=== PATIENT | male | born 1975 | race Caucasian/White ===

== ENCOUNTER 2020-12-20 15:22 | Outpatient (REF) | payer OTHER, SELFPAY | END 2020-12-20 15:23 | disposition home or self-care (01) | LOC: HO.LAB 15:22 | PROVIDERS: Visit Provider Internal Medicine | DX: Z20.822 Contact with and (suspected) exposure to COVID-19 (principal) | CPT/HCPCS: 36415; C9803; U0003 ==

== ENCOUNTER 2022-08-16 05:46 | Emergency (ER) | payer SELFPAY ==
[2022-08-16 06:23] VITALS: BP 129/77; PULSE 98; RESP 20; TEMP 36.3; O2SAT 97; BMI 25.1
--- NOTE | 2022-08-16 06:58 | ED.ABDPAIN ---
HPI - Abdominal Pain General Chief Complaint: General Medical Stated Complaint: food poisoning? Time Seen by Provider: 08/16/22 06:52 Source: patient Mode of arrival: ambulatory Limitations: no limitations Related Data Home Medications Medication Instructions Recorded Confirmed No Known Home Meds 03/27/22 03/27/22 Allergies Allergy/AdvReac Type Severity Reaction Status Date / Time No Known Allergies Allergy Verified 03/27/22 15:04 PMFSH Past Medical History Medical History Family history of diabetes mellitus KAMILA (generalized anxiety disorder) Mild intermittent asthma Mild recurrent major depression Moderate persistent asthma Varicocele Surgical History History of appendectomy History of umbilical hernia repair History of varicocele Family History Family History Mother Diabetes Father Stroke Social History Social History Housing: Apartment Alcohol intake: former Patient Tobacco Use Status: Current everyday Tobacco user Tobacco use type: Cigarette Cigarette Packs Per Day: 2 Cigarettes Per Day: 40 e-Cigarette/Vaping Use: Never Used Second Hand Smoke Exposure: No service: No Current occupational status: employed Current occupational exposures/hazards: No Cognitive needs: No Hearing needs: No Vision needs: Yes Physical Exam ED Vital Signs: Vital Signs - 24 hr 08/16/22 06:23 Temperature 97.4 F Pulse Rate 98 Respiratory Rate 20 Blood Pressure 129/77 Pulse Oximetry 97 Oxygen Delivery Method Room Air BMI result Body Mass Index 25.1 Discharge Plan Discharge Prescriptions: No Action No Known Home Meds
== END 2022-08-16 07:20 | disposition left against medical advice (07) ==
PROVIDERS: Emergency Provider Emergency Medicine
DX: R11.2 Nausea with vomiting, unspecified (principal); R10.9 Unspecified abdominal pain
CPT/HCPCS: 99281

== ENCOUNTER 2022-08-19 08:29 | Emergency (ER) | payer SELFPAY ==
--- NOTE | ~2022-08-19 | CT_ITS ---
EXAMINATION: CT ABDOMEN AND PELVIS WITH CONTRAST CLINICAL INFORMATION: Nausea, vomiting and diffuse abdominal pain COMPARISON: Right upper quadrant ultrasound performed the same date TECHNIQUE: Multidetector volumetric images were obtained from the superior aspect of the liver through the pubic symphysis following administration 85 mL of Omnipaque 350 intravenous contrast. Sagittal and coronal reformatted images were obtained on the technologist's workstation. Oral contrast: No This CT examination was performed using dose optimization techniques as appropriate, variously including the following: *Automated exposure control *Adjustment of mA and/or kV according to patient size (this includes techniques or standardized protocols for targeted exams where dose is matched to indication/reason for exam; i.e. extremities or head) *Use of iterative reconstruction technique DLP: 444 mGy-cm FINDINGS: LUNG BASES: Minimal subsegmental atelectasis of the dependent left lung base. LIVER, GALLBLADDER, AND BILIARY TREE: The liver is normal in size, shape, and attenuation. No focal hepatic lesion or biliary ductal dilatation is present. Large 2.2 cm peripherally calcified gallstone in the body of the gallbladder. Tiny gallstone versus focal mural calcification in the gallbladder fundus. Prominent enhancement of the gallbladder wall. No pericholecystic fluid or inflammatory change. PANCREAS: Unremarkable. SPLEEN: Unremarkable. ADRENAL GLANDS: Unremarkable. KIDNEYS AND URETERS: The kidneys are normal in size, shape, and attenuation. No hydronephrosis, hydroureter, or calculi seen. No perinephric stranding. BLADDER: Unremarkable. GASTROINTESTINAL TRACT: The small and large bowel are unremarkable. The appendix is not visualized. No inflammatory change at the cecal base. No ascites or free air. ABDOMINAL WALL: No significant hernia is appreciated. LYMPH NODES: No lymphadenopathy. Slightly giles appearance of the mesenteric root, nonspecific finding. VASCULAR: Normal caliber abdominal aorta. Mild atherosclerotic vascular calcifications PELVIC VISCERA: Unremarkable. OSSEOUS STRUCTURES: No acute fracture or suspicious appearing osseous lesion. Small 1.3 cm sclerotic bone lesion with trabeculated margins in the posterior medial left iliac bone likely a large bone island. CT/CT abdomen pelvis w IV con IMPRESSION: 1. Cholelithiasis and prominent enhancement of the gallbladder wall, nonspecific. Correlate clinically with signs or symptoms of acute or chronic cholecystitis. No pericholecystic fluid or inflammatory change. 2. No acute intra-abdominal process identified.
--- NOTE | ~2022-08-19 | US_ITS ---
EXAMINATION: US ABDOMEN LIMITED CLINICAL INFORMATION: Nausea and vomiting. Abdominal pain.. COMPARISON: None TECHNIQUE: Real-time imaging of the right upper quadrant abdominal viscera. FINDINGS: PANCREAS: Normal. LIVER: Normal. The liver is normal in size. The liver contour is normal. Parenchymal echogenicity is normal. No focal hepatic lesion. There is no intrahepatic biliary duct dilatation seen. GALLBLADDER: There is a large gallstone in the gallbladder. Gallbladder wall is slightly thickened and there is ring down artifact suggestive of adenomyomatosis of the gallbladder wall. There is no pericholecystic fluid. COMMON BILE DUCT: Normal in caliber measuring 0.3 cm in diameter. RIGHT KIDNEY: There is mild right proximal ureteral dilatation. No hydronephrosis. No renal calculi or focal parenchymal lesions. The kidney measures 11.5 cm in maximum dimension. FREE FLUID: None. Bilateral ureteral jets are seen in the bladder. US/US abdomen limited IMPRESSION: Large gallstone in the gallbladder. Probable adenomyomatosis of the gallbladder wall. Mild right proximal ureteral dilatation. No hydronephrosis and bilateral ureteral jets seen in the bladder.
[2022-08-19] MEDS: Ondansetron ODT 4 MG TAB.RAPDIS TRANSLINGU (09:14)
[2022-08-19 09:38] VITALS: BP 144/90; PULSE 78; RESP 16; TEMP 36.6; O2SAT 100; BMI 23.1
[2022-08-19 13:36] LABS: MANUAL DIFF FLAG NO
[2022-08-19 13:41] VITALS: BP 128/81; PULSE 71; RESP 18; TEMP 37.2; O2SAT 98
[2022-08-19 13:42] LABS: Basophils Absolute Auto 0.1 X10*3/uL (0.0-0.2); Basophils Percent Auto 0.5 % (0-2); Eosinophils Percent Auto 0.3 % (0-4); Hematocrit 43.6 % (42.0-52.0); Hemoglobin 14.7 g/dl (14.0-18.0); Imm Gran Abs Auto 0.04 X10*3/uL (0.00-0.03); Imm Gran Pct Auto 0.4 % (0.0-0.4); Lymphocytes Absolute Auto 1.7 X10*3/uL (1.2-4.9); Lymphocytes Percent Auto 18.6 % (20-40); Mean Corpuscular HGB Conc 33.7 g/dl (31.0-36.0); Mean Corpuscular Hemoglobin 31.5 pg (27.0-33.0); Mean Corpuscular Volume 93.6 fL (80.0-98.0); Mean Platelet Volume 10.1 fL (9.4-12.4); Monocytes Absolute Auto 0.7 X10*3/uL (0.1-1.2); Monocytes Percent Auto 7.9 % (2-11); Neutrophils Absolute Auto 6.6 x10*3/uL (2.0-8.3); Neutrophils Percent Auto 72.3 % (45-73); Platelet Count 257 X10*3/uL (160-400); Red Blood Count 4.66 X10*6/uL (4.60-5.80); Red Cell Distribution Width 13.4 % (11.0-16.0); White Blood Count 9.1 X10*3/uL (4.8-10.8)
[2022-08-19 13:53] LABS: COVID-19 Test Negative (Negative); IDNOW Serial# 16C4AD1C
[2022-08-19 14:03] LABS: Appearance Urine Clear; Color Urine Yellow; Glucose Urine UA Negative (Negative); Leukocyte Esterase Urine Negative (Negative); Nitrite Urine Negative (Negative); PH 8.5 (5.0-9.0); Urine Blood Negative (Negative); Urine Ketones Negative (Negative); Urine Protein Negative (Neg-Trace)
[2022-08-19 14:08] LABS: Alanine Aminotransferase 26 U/L (0-40); Albumin Level 4.4 g/dL (3.5-5.0); Alkaline Phosphatase 64 U/L (39-117); Anion Gap 18 (12-20); Aspartate Amino Transferase 19 U/L (5-37); Bilirubin Direct 0.4 mg/dL (0.0-0.5); Bilirubin Total 0.8 mg/dL (0.0-1.0); Blood Urea Nitrogen 13 mg/dL (9-16); Calcium 9.5 mg/dL (8.4-10.2); Carbon Dioxide 23 mmol/L (22-29); Chloride 105 mmol/L (96-108); Creatinine Clr Calc Pharmacy 103.1; Estimated Glomerular Filt Rate > 60; Glucose Random 97 mg/dL (60-115); Lipase 14 U/L (8-78); Magnesium 2.2 mg/dL (1.6-2.6); Potassium 4.3 mmol/L (3.3-5.1); Sodium 142 mmol/L (135-145); Total Protein 7.1 g/dL (6.5-8.0)
--- NOTE | 2022-08-19 14:21 | PC.NURSE ---
Pt V/S are stable, pt was percussion and palpitation during the focus the assessment. Pt was experiencing tenderness in the RUQ. PT IV was inserted 20g on his left anticubital hand. Pt left to ct meds has not been given yet.
[2022-08-19] MEDS: iohexoL 350 MG/ML 100 ML INFUS..BTL IV (14:29)
--- NOTE | 2022-08-19 14:38 | ED.ABDPAIN ---
HPI - Abdominal Pain General Chief Complaint: Abdominal Pain Stated Complaint: Abd Pain/N/V Time Seen by Provider: 08/19/22 10:07 Source: patient and family Mode of arrival: ambulatory Limitations: language barrier (Maltese-speaking) History of Present Illness HPI narrative: 47-year-old male with a past medical history of diabetes, asthma, anxiety and depression who reports he has had his appendix removed presenting to the ER with complaints of nausea vomiting over the past 6 days usually at nighttime from 1 in the morning to approximately 05:00 with associated epigastric/right lower quadrant abdominal pain that radiates diffusely to the rest of the abdomen. Denies any fevers, chills, dizziness, headaches, neck pain/stiffness, sore throat, nasal congestion, cough, chest pain or shortness of breath, dyspnea on exertion, orthopnea, black or bloody emesis, recent travel or sick contacts, recent antibiotic usage, recent hospitalization, others with similar symptoms, possible bad food exposure, back pain, flank pain, dysuria, hematuria, abnormal penile discharge, rashes, diarrhea constipation or any other symptoms complaints or concerns at this time. MD elicited complaint: abdominal pain Onset (ago): day(s) (6) Pain Consistency: constant Location: epigastric and RLQ Severity: moderate Quality: aching Radiation: other (Diffusely) Exacerbating factors: nothing Relieving factors: other (At nighttime when he is laying down) Associated symptoms: nausea and vomiting Related Data Previous Rx's Medication Instructions Recorded ibuprofen 800 mg tablet 800 mg PO Q8H PRN pain #14 tabs 08/19/22 ondansetron 4 mg disintegrating 4 mg PO Q8H #14 tabs 08/19/22 tablet oxycodone 5 mg tablet 5 mg PO Q6H PRN pain #14 tabs 08/19/22 Allergies Allergy/AdvReac Type Severity Reaction Status Date / Time No Known Allergies Allergy Verified 03/27/22 15:04 Review of Systems Review of Systems Constitutional : No Weight loss, No Fever, No Chills, No Night Sweats, No Fatigue, No Malaise ENT/Mouth : No Hearing loss, No Ear Pain, No Nasal Congestion, No Sinus Pain, No Hoarseness, No sore throat, No Rhinorrhea, No Swallowing Difficulty Eyes: No Eye Pain, No Swelling, No Redness, No Foreign Body, No Discharge, No Vision Changes Cardiovascular : No Chest Pain, No SOB, No Dyspnea on Exertion, No Orthopnea, No Edema, No Palpitations Respiratory : No Cough, No Sputum, No Wheezing, No Smoke Exposure, No Dyspnea Gastrointestinal : + Nausea, + Vomiting, No Diarrhea, No Constipation, + abdominal Pain, No Hematochezia, No Melena Genitourinary : no irregular bleeding, No Dysuria, No Urinary Frequency, No Hematuria, No Urinary Incontinence, No Urgency, No Flank Pain, No Urinary Flow Changes, No Hesitancy Musculoskeletal : No joint pain, No Myalgias, No Joint Swelling Skin : No Skin Lesions, No rash Neuro : No Weakness, No Numbness, No Paresthesias, No Loss of Consciousness, No Dizziness, No Headache Psych : No Anxiety/Panic, No Depression, No SI/HI/AH/VH, No Social Issues, Heme/Lymph: No Bruising, No Bleeding,No Lymphadenopathy Endocrine : No Polyuria, No Polydipsia, No Temperature Intolerance Yes all other systems are reviewed and are negative COUNT INCLUDES THE [facility] Past Medical History Attestation statement: The following information was validated with the patient. Source: old records reviewed, obtained from family and nursing notes reviewed Medical History Family history of diabetes mellitus KAMILA (generalized anxiety disorder) Mild intermittent asthma Mild recurrent major depression Moderate persistent asthma Varicocele Surgical History History of appendectomy History of umbilical hernia repair History of varicocele Family History Family History Mother Diabetes Father Stroke Social History Social History Housing: Apartment Alcohol intake: former Patient Tobacco Use Status: Current everyday Tobacco user Tobacco use type: Cigarette Cigarette Packs Per Day: 2 Cigarettes Per Day: 40 Smoked in Last 30 Days: Yes e-Cigarette/Vaping Use: Never Used Second Hand Smoke Exposure: No Use of substances other than those prescribed or required for medical reasons: Yes Substance Use Type: Marijuana Advance Directives: No Advance Directives Information Provided: Yes service: No Current occupational status: employed Current occupational exposures/hazards: No Cognitive needs: No Hearing needs: No Vision needs: Yes Physical Exam ED Vital Signs: Vital Signs - 24 hr 08/19/22 09:38 08/19/22 13:41 Temperature 98 F 98.9 F Pulse Rate 78 71 Respiratory Rate 16 18 Blood Pressure 144/90 H 128/81 Pulse Oximetry 100 98 Oxygen Delivery Method Room Air Room Air BMI result Body Mass Index 23.1 vital signs have been reviewed as normal and appeared to be correct. Blood pressure 144/90 Heart rate normal. Respiration rate normal. Temperature normal. Oxygen saturation normal. Appearance: Alert. Oriented X3. No acute distress. Head: Normal external exam. Normocephalic. Atraumatic. Eyes: PERRLA. EOMI. Conjunctiva and sclera normal. Eyelids normal. ENT: Pharynx normal. Uvula midline. Moist mucous membranes. No lesions/ulcerations or masses noted on the tongue. Normal voice. No trismus noted. No drooling noted. No muffled voice noted. Neck: Normal inspection. Neck supple. FROM. No adenopathy. Thyroid Normal. No tracheal deviation noted. No crepitus is noted. No meningeal signs. No neck mass noted. No signs of trauma noted. CVS: Normal heart rate and rhythm. Heart sound normal. Pulses normal throughout. No murmurs/rales/gallops. Respiratory: No respiratory distress. Painless inspiration. Breath sounds normal. No wheezes/rales/rhonchi noted. Chest nontender. No crepitus is noted. No signs of trauma noted. No accessory muscle usage noted or decreased air movement noted. No signs of trauma. Abdomen: Soft and moderate tenderness diffusely. Bowel sounds normal in all 4 quadrants. No distention noted. No organomegaly noted. No visible injury noted. Back: No CVA tenderness. Full range of motion noted. Nontender. No signs of trauma. Patient neuro intact bilaterally and distally on all 4 extremities. Patient's reflexes intact bilaterally and distally on all 4 extremities. No rashes/lesion/induration/fluctuance or signs of infection noted. Skin: Skin warm and dry. Normal skin color. Normal skin turgor. No rashes/lesions/lacerations noted. Extremities: Extremities exhibit normal range of motion and nontender. Neuro: Oriented X 3. No motor deficit. No sensory deficit. Reflexes normal. Normal steady gait. No focal neuro deficits noted. CN's II-XII intact bilaterally? Vascular: + radial pulses/+ 2 distal pedal pulses/+2 dorsalis pedis b/l. Normal cap refill. No cyanosis noted to upper extremity nails and lower extremity toes nails. Course Course Course Narrative: 13pm 47-year-old male with a past medical history of diabetes, asthma, anxiety and depression who reports he has had his appendix removed presenting to the ER with complaints of nausea vomiting over the past 6 days usually at nighttime from 1 in the morning to approximately 05:00 with associated epigastric/right lower quadrant abdominal pain that radiates diffusely to the rest of the abdomen. Plan: Will obtain labs, CT scan abdomen pelvis IV contrast, abdominal ultrasound limited. Provide a L of IV fluids, 4 mg of Zofran and 30 mg of IV Toradol re-evaluate. Reevaluation(s) Reevaluation #1: - labs reviewed and all labs within normal limits. UA within normal limits no evidence of UTI. Patient negative for COVID. - abdominal ultrasound revealed large gallstone in the gallbladder. Probable adenomyomatosis of the gallbladder wall. Mild right proximal ureteral dilatation. No hydronephrosis and bilateral ureteral jets seen in the bladder. Time: 15:09 Reevaluation #2: - CT scan abdomen pelvis with IV contrast revealed IMPRESSION: ? 1. Cholelithiasis and prominent enhancement of the? gallbladder wall, nonspecific. Correlate clinically with signs or symptoms of acute or chronic cholecystitis. No pericholecystic fluid or inflammatory change. 2. No acute intra-abdominal process identified. - can not therefore I discussed this case with Dr. Matos the general surgeon he reports that the patient does not need to be admitted at the patient does not have an elevated white blood cell count. His lipase is normal. Liver function tests are all normal. Therefore at this time patient most likely coli lithiasis not consistent with acute cholecystitis. Patient will be seen as an outpatient basis. Will DC home with symptomatic treatment instructions return if any new or worsening symptoms. Patient understands agrees with this plan. Time: 15:17 [facility] - Abdominal Pain Medical Records Attestation: I reviewed the patient's medical records. Lab Data Attestation: I reviewed the patient's lab results. Result diagrams: 08/19/22 13:30 08/19/22 13:31 Labs: Lab Results 08/19/22 08/19/22 08/19/22 Range/Units 13:30 13:31 13:31 WBC 9.1 (4.8-10.8) X10*3/uL RBC 4.66 (4.60-5.80) X10*6/uL Hgb 14.7 (14.0-18.0) g/dl Hct 43.6 (42.0-52.0) % MCV 93.6 (80.0-98.0) fL MCH 31.5 (27.0-33.0) pg MCHC 33.7 (31.0-36.0) g/dl RDW 13.4 (11.0-16.0) % Plt Count 257 (160-400) X10*3/uL MPV 10.1 (9.4-12.4) fL Immature Gran % (Auto) 0.4 (0.0-0.4) % Neut % (Auto) 72.3 (45-73) % Lymph % (Auto) 18.6 L (20-40) % [place] % (Auto) 7.9 (2-11) % Eos % (Auto) 0.3 (0-4) % Baso % (Auto) 0.5 (0-2) % Lymph # (Auto) 1.7 (1.2-4.9) X10*3/uL [place] # (Auto) 0.7 (0.1-1.2) X10*3/uL Eos # (Auto) 0.0 (0.0-0.4) X10*3/uL Baso # (Auto) 0.1 (0.0-0.2) X10*3/uL Abs Immat Gran (auto) 0.04 H (0.00-0.03) X10*3/uL Absolute Neuts (auto) 6.6 (2.0-8.3) x10*3/uL Absolute Nucleated RBC 0.000 (0.0-0.012) X10*3/uL Nucleated RBC % (auto) 0.0 (0.0-0.2) /100WBC Sodium 142 (135-145) mmol/L Potassium 4.3 (3.3-5.1) mmol/L Chloride 105 (96-108) mmol/L Carbon Dioxide 23 (22-29) mmol/L Anion Gap 18 (12-20) BUN 13 (9-16) mg/dL Creatinine 0.81 (0.5-1.4) mg/dL Estim Creat Clear Calc 103.1 Estimated GFR > 60 Random Glucose 97 (60-115) mg/dL Calcium 9.5 (8.4-10.2) mg/dL Magnesium 2.2 (1.6-2.6) mg/dL Total Bilirubin 0.8 (0.0-1.0) mg/dL Direct Bilirubin 0.4 (0.0-0.5) mg/dL AST 19 (5-37) U/L ALT 26 (0-40) U/L Alkaline Phosphatase 64 (39-117) U/L Total Protein 7.1 (6.5-8.0) g/dL Albumin 4.4 (3.5-5.0) g/dL Lipase 14 (8-78) U/L Urine Color Urine Appearance Urine pH (5.0-9.0) Ur Specific [place] (1.005-1.025) Urine Protein (Neg-Trace) mg/dL Urine Glucose (UA) (Negative) mg/dL Urine Ketones (Negative) mg/dL Urine Blood (Negative) Urine Nitrite (Negative) Ur Leukocyte Esterase (Negative) COVID-19 (JUDITH) Negative (Negative) COVID-19 Clin Com See Note 08/19/22 Range/Units 13:52 WBC (4.8-10.8) X10*3/uL RBC (4.60-5.80) X10*6/uL Hgb (14.0-18.0) g/dl Hct (42.0-52.0) % MCV (80.0-98.0) fL MCH (27.0-33.0) pg MCHC (31.0-36.0) g/dl RDW (11.0-16.0) % Plt Count (160-400) X10*3/uL MPV (9.4-12.4) fL Immature Gran % (Auto) (0.0-0.4) % Neut % (Auto) (45-73) % Lymph % (Auto) (20-40) % [place] % (Auto) (2-11) % Eos % (Auto) (0-4) % Baso % (Auto) (0-2) % Lymph # (Auto) (1.2-4.9) X10*3/uL [place] # (Auto) (0.1-1.2) X10*3/uL Eos # (Auto) (0.0-0.4) X10*3/uL Baso # (Auto) (0.0-0.2) X10*3/uL Abs Immat Gran (auto) (0.00-0.03) X10*3/uL Absolute Neuts (auto) (2.0-8.3) x10*3/uL Absolute Nucleated RBC (0.0-0.012) X10*3/uL Nucleated RBC % (auto) (0.0-0.2) /100WBC Sodium (135-145) mmol/L Potassium (3.3-5.1) mmol/L Chloride (96-108) mmol/L Carbon Dioxide (22-29) mmol/L Anion Gap (12-20) BUN (9-16) mg/dL Creatinine (0.5-1.4) mg/dL Estim Creat Clear Calc Estimated GFR Random Glucose (60-115) mg/dL Calcium (8.4-10.2) mg/dL Magnesium (1.6-2.6) mg/dL Total Bilirubin (0.0-1.0) mg/dL Direct Bilirubin (0.0-0.5) mg/dL AST (5-37) U/L ALT (0-40) U/L Alkaline Phosphatase (39-117) U/L Total Protein (6.5-8.0) g/dL Albumin (3.5-5.0) g/dL Lipase (8-78) U/L Urine Color Yellow Urine Appearance Clear Urine pH 8.5 (5.0-9.0) Ur Specific [place] 1.010 (1.005-1.025) Urine Protein Negative (Neg-Trace) mg/dL Urine Glucose (UA) Negative (Negative) mg/dL Urine Ketones Negative (Negative) mg/dL Urine Blood Negative (Negative) Urine Nitrite Negative (Negative) Ur Leukocyte Esterase Negative (Negative) COVID-19 (JUDITH) (Negative) COVID-19 Clin Com Imaging Data Abdominal ultrasound limited: Attestation: I personally reviewed and interpreted this imaging study as follows: Radiologist's impression: FINDINGS: PANCREAS: Normal. LIVER: Normal. The liver is normal in size. The liver contour is normal. Parenchymal echogenicity is normal. No focal hepatic lesion. There is no intrahepatic biliary duct dilatation seen. GALLBLADDER: There is a large gallstone in the gallbladder. Gallbladder wall is slightly thickened and there is ring down artifact suggestive of adenomyomatosis of the gallbladder wall. There is no pericholecystic fluid. COMMON BILE DUCT: Normal in caliber measuring 0.3 cm in diameter. RIGHT KIDNEY: There is mild right proximal ureteral dilatation. No hydronephrosis. No renal calculi or focal parenchymal lesions. The kidney measures 11.5 cm in maximum dimension. FREE FLUID: None. Bilateral ureteral jets are seen in the bladder. US/US abdomen limited IMPRESSION: Large gallstone in the gallbladder. Probable adenomyomatosis of the gallbladder wall. Mild right proximal ureteral dilatation. No hydronephrosis and bilateral ureteral jets seen in the bladder. CT scan abdomen pelvis with IV contrast: Attestation: I personally reviewed and interpreted this imaging study as follows: Radiologist's impression: FINDINGS: LUNG BASES: Minimal subsegmental atelectasis of the dependent left lung base.? LIVER, GALLBLADDER, AND BILIARY TREE: The liver is normal in size, shape, and attenuation. No focal hepatic lesion or biliary ductal dilatation is present. Large 2.2 cm peripherally calcified gallstone in the body of the gallbladder. Tiny gallstone versus focal mural calcification in the gallbladder fundus. Prominent enhancement of the gallbladder wall. No pericholecystic fluid or inflammatory change.? PANCREAS: Unremarkable.? SPLEEN: Unremarkable.? ADRENAL GLANDS: Unremarkable.? KIDNEYS AND URETERS: The kidneys are normal in size, shape, and attenuation. No hydronephrosis, hydroureter, or calculi seen. No perinephric stranding. ? BLADDER: Unremarkable.? GASTROINTESTINAL TRACT: The small and large bowel are unremarkable. The appendix is not visualized. No inflammatory change at the cecal base. No ascites or free air.? ABDOMINAL WALL: No significant hernia is appreciated.? LYMPH NODES: No lymphadenopathy. Slightly giles appearance of the mesenteric root, nonspecific finding. VASCULAR: Normal caliber abdominal aorta. Mild atherosclerotic vascular calcifications PELVIC VISCERA: Unremarkable.? OSSEOUS STRUCTURES: No acute fracture or suspicious appearing osseous lesion. Small 1.3 cm sclerotic bone lesion with trabeculated margins in the posterior medial left iliac bone likely a large bone island.? CT/CT abdomen pelvis w IV con IMPRESSION: ? 1. Cholelithiasis and prominent enhancement of the? gallbladder wall, nonspecific. Correlate clinically with signs or symptoms of acute or chronic cholecystitis. No pericholecystic fluid or inflammatory change. 2. No acute intra-abdominal process identified. ? Discharge Plan Discharge Clinical Impression: Cholelithiasis Patient Disposition: Home, Self-Care Instructions: Gallstones (ED) Prescriptions: New ondansetron 4 mg tablet,disintegrating 4 mg PO Q8H Qty: 14 0RF oxycodone 5 mg tablet 5 mg PO Q6H PRN (Reason: pain) Qty: 14 0RF Rx Instructions: Partial Fill upon patient request. ibuprofen 800 mg tablet 800 mg PO Q8H PRN (Reason: pain) Qty: 14 0RF Referrals: Uche Matos MD [Physician] - (Call to make a follow-up appointment within the next few weeks) Stand Alone Forms: Work/School Release Print Language: Maltese
[2022-08-19] MEDS: Ketorolac Tromethamine 30 MG/ML VIAL IVPUSH (14:44)
[2022-08-19] MEDS: 0.9 % Sodium Chloride 1,000 ML 999 ML IVCONT (14:44)
--- NOTE | 2022-08-19 14:47 | PC.NURSE ---
Pt has returned from CT scan, Pt has IVF running and meds as order. Will continue to monitor.
[2022-08-19 15:59] VITALS: BP 123/82; PULSE 68; RESP 16; TEMP 37.1
== END 2022-08-19 16:00 | disposition home or self-care (01) ==
PROVIDERS: Physician Assistant; Emergency Provider Emergency Medicine
DX: K80.20 Calculus of gallbladder without cholecystitis without obstruction (principal); Z20.822 Contact with and (suspected) exposure to COVID-19; E11.9 Type 2 diabetes mellitus without complications; F17.210 Nicotine dependence, cigarettes, uncomplicated; F12.90 Cannabis use, unspecified, uncomplicated
CPT/HCPCS: 36415; 74177; 76705; 80048; 80076; 81003; 83690; 83735; 85025; 87635; 96361; 96374; 99284; 99285; J1885; Q9967

== ENCOUNTER 2022-10-22 11:00 | Emergency (ER) | payer OTHER, SELFPAY ==
--- NOTE | ~2022-10-22 | XR_ITS ---
EXAMINATION: XR WRIST, RIGHT CLINICAL INFORMATION: Fall, pain. COMPARISON: None TECHNIQUE: PA, lateral, and oblique views of the right wrist. FINDINGS: The bones and soft tissues are normal. No fracture. Alignment is anatomic with normal joint spaces. No erosions or abnormal soft tissue calcifications. XR/XR wrist RT 2V IMPRESSION: Normal right wrist.
[2022-10-22 12:08] VITALS: BP 113/65; PULSE 74; RESP 17; TEMP 36.7; O2SAT 98; BMI 25.7
--- NOTE | 2022-10-22 12:09 | ED.GENADULT ---
HPI - General Adult General Chief complaint: Extremity Injury, Upper Stated complaint: R wrist inj 10/22/22 Time Seen by Provider: 10/22/22 13:05 Source: patient Mode of arrival: ambulatory Limitations: no limitations History of Present Illness HPI narrative: Patient is a 47 year old assigned male at with a history of KAMILA presenting to the emergency department today with right wrist pain. Patient states that yesterday he fell and landed on his right wrist and it is still bothering him some. Patient denies hitting his head with the incident, denies any loss of consciousness with the incident. Patient denies any dizziness, lightheadedness, abdominal pain, nausea, vomiting, fever, chills, blurry vision, double vision, loss of vision, chest pain, difficulty breathing, shortness of breath, back pain, night sweats, pain with urination, increased urinary frequency, increased urinary urgency, blood in his urine or stool, syncope or a near syncopal episode, bowel incontinence, bladder incontinence, bowel retention, bladder retention, or any other complaints at this time. Onset (ago): day(s) (1) Location: right and upper extremity Radiation: non-radiation Severity: mild Severity scale (1-10): 3 Quality: aching and dull Pain Consistency: constant Relieving factors: none Exacerbating factors: none Associated symptoms: denies other symptoms Treatments prior to arrival: none Related Data Previous Rx's Medication Instructions Recorded ibuprofen 800 mg tablet 800 mg PO Q8H PRN pain #14 tabs 08/19/22 ondansetron 4 mg disintegrating 4 mg PO Q8H #14 tabs 08/19/22 tablet oxycodone 5 mg tablet 5 mg PO Q6H PRN pain #14 tabs 08/19/22 Allergies Allergy/AdvReac Type Severity Reaction Status Date / Time No Known Allergies Allergy Verified 03/27/22 15:04 Review of Systems Constitutional: Constitutional: Reports no additional constitutional complaints, Denies chills, Denies fever(s) and Denies night sweats Eyes: Eyes: Reports no additional eye complaints, Denies blurry vision, Denies change in vision, Denies diplopia, Denies eye discharge, Denies loss of vision and Denies eye pain ENT: Denies dizziness Cardiovascular: Cardiovascular: Reports no additional cardiovascular complaints, Denies chest pain, Denies lightheadedness, Denies Loss of Consciousness and Denies dyspnea Respiratory: Respiratory: Reports no additional respiratory complaints and Denies dyspnea Gastrointestinal: Gastrointestinal: Reports no additional gastrointestinal complaints, Denies abdominal pain, Denies melena, Denies hematochezia, Denies change in bowel habits and Denies change in stool character Genitourinary: Genitourinary: Reports no additional male genitourinary complaints, Denies hematuria, Denies oliguria, Denies difficulty urinating, Denies dysuria, Denies urinary frequency, Denies urinary hesitancy, Denies urinary incontinence and Denies urinary urgency Musculoskeletal: Musculoskeletal: Reports no additional musculoskeletal complaints, Denies numbness and Denies tingling Comments: right wrist pain Neurologic: Denies dizziness, Denies loss of vision, Denies numbness and Denies tingling Psychiatric: Psychiatric: Reports no additional psychiatric complaints Endocrine: Endocrine: Reports no additional endocrine complaints Hematologic/Lymphatic: Hematologic/Lymphatic: Reports no additional hematologic/lymphatic complaints Allergic/Immunologic: Allergic/Immunologic: Reports no additional allergic/immunologic complaints PMF Past Medical History Attestation statement: The following information was validated with the patient. Source: old records reviewed Medical History Family history of diabetes mellitus KAMILA (generalized anxiety disorder) Mild intermittent asthma Mild recurrent major depression Moderate persistent asthma Varicocele Surgical History History of appendectomy History of umbilical hernia repair History of varicocele Family History Family History Mother Diabetes Father Stroke Social History Social History Housing: Apartment Alcohol intake: former Patient Tobacco Use Status: Current everyday Tobacco user Tobacco use type: Cigarette Cigarette Packs Per Day: 2 Cigarettes Per Day: 40 e-Cigarette/Vaping Use: Never Used Second Hand Smoke Exposure: No Substance Use Type: Marijuana service: No Current occupational status: employed Current occupational exposures/hazards: No Cognitive needs: No Hearing needs: No Vision needs: Yes Physical Exam ED Vital Signs: Vital Signs - 24 hr 10/22/22 12:08 Temperature 98.0 F Pulse Rate 74 Respiratory Rate 17 Blood Pressure 113/65 Pulse Oximetry 98 Oxygen Delivery Method Room Air BMI result Body Mass Index 25.7 Const General: cooperative, no acute distress, alert and awake Nutritional Appearance: well nourished Orientation/consciousness: patient oriented x3 Limitations: no limitations HENMT Head: Yes normal to inspection and Yes atraumatic Ears: hearing grossly normal bilaterally and external ears normal General nose exam: Normal external nose present, no nasal discharge noted and no epistaxis Face and sinus: Yes normal facial exam, No abrasion and No laceration Mouth: Normal oral and palatal mucosa present, no drooling and no muffled voice Eyes General: appearance normal, both eyes and all related structures Periorbital: periorbital findings normal Eyelids: Yes eyelids normal Conjunctivae: conjunctivae normal Pupils: Equal, round and reactive pupils present EOM: EOMs intact bilaterally Neck Neck: Yes normal visual inspection, Yes full ROM and Yes no lymphadenopathy Chest Chest palpation & inspection: normal inspection of the chest Resp Effort & Inspection: normal respiratory effort and able to speak in complete sentences Auscultation: clear to auscultation bilaterally Cardio Rate: regular rate Rhythm: regular rhythm GI Inspection: Yes normal to inspection Neuro General: patient oriented x3 and moves all extremities Cranial nerves: Yes Equal, round and reactive pupils present Cognition (Neuro): normal cognition Motor exam (neuro): 5/5 motor strength present throughout Sensory Exam: Normal double simultaneous stimulation for sensation Coordination: [id number] test normal Extrem General: Yes normal to inspection, Yes full ROM and Yes capillary refill normal Psych Appearance: grossly normal Mental Status: mental status grossly normal Affect: normal affect Attitude: cooperative Thought process: Normal thought process present Thought content: Normal thought content present Insight: Good insight present (Psych) Course Course Course Narrative: RME performed by Malini Madrigal PA-C. Patient is a 47 year old male presenting to the emergency department with right wrist pain. Right wrist XR ordered. Patient placed back in the waiting room awaiting results and bed availability. Medical Decision Making MDM Narrative Medical decision making narrative: Patient is a 47 year old assigned male at with a history of GERD presenting to the emergency department today with right wrist pain. Patient's physical exam was unremarkable. Patient's right wrist x-ray showed no acute process. I explained my physical exam findings as well as all test results to the patient. I answered all questions asked by the patient. I stressed the importance of the patient taking his medication as prescribed. I stressed the importance of the patient following up with his primary care provider. I stressed the importance of the patient returning to the emergency department immediately if his symptoms were to worsen or if he were to develop any dizziness, shortness of breath, difficulty breathing, chest pain, blurry vision, loss of vision, nausea, vomiting, abdominal pain, fever, chills, back pain, or any other complaints. Patient verbalized agreement and understanding with this treatment plan and discharge. Imaging Data Right wrist x-ray: Attestation: I personally reviewed and interpreted this imaging study as follows: My impression: No acute process. Radiologist's impression: EXAMINATION: XR WRIST, RIGHT CLINICAL INFORMATION: Fall, pain. COMPARISON: None? TECHNIQUE: PA, lateral, and oblique views of the right wrist. FINDINGS: The bones and soft tissues are normal. No fracture. Alignment is anatomic with normal joint spaces. No erosions or abnormal soft tissue calcifications.? XR/XR wrist RT 2V IMPRESSION: Normal right wrist. Dictated By: Peewee Toledo MD Signed By: Electronically signed by Peewee Toledo MD 10/22/22 1236 Discharge Plan Discharge Clinical Impression: Sprain of wrist Patient Disposition: Home, Self-Care Instructions: Wrist Sprain (ED) Additional Instructions: Follow up with your primary care provider. Return to the emergency department immediately if your symptoms worsen or if you develop any dizziness, shortness of breath, difficulty breathing, chest pain, blurry vision, loss of vision, nausea, vomiting, abdominal pain, fever, chills, back pain, or any other complaints. Prescriptions: No Action ondansetron 4 mg tablet,disintegrating 4 mg PO Q8H Qty: 14 0RF oxycodone 5 mg tablet 5 mg PO Q6H PRN (Reason: pain) Qty: 14 0RF Rx Instructions: Partial Fill upon patient request. ibuprofen 800 mg tablet 800 mg PO Q8H PRN (Reason: pain) Qty: 14 0RF Referrals: [facility] [place] Family Medicine [Provider Group] (Call to establish and follow up with a primary care provider. If you already have a primary care provider, please follow up with them. ) [facility] [place] [facility] [Provider Group] (Call to establish and follow up with a primary care provider. If you already have a primary care provider, please follow up with them. ) [facility] [place] [facility] [Provider Group] (Call to establish and follow up with a primary care provider. If you already have a primary care provider, please follow up with them. ) Stand Alone Forms: Work/School Release Print Language: Bolivian
== END 2022-10-22 13:18 | disposition home or self-care (01) ==
PROVIDERS: Emergency Provider Emergency Medicine
DX: S63.501A Unspecified sprain of right wrist, initial encounter (principal); W01.0XXA Fall on same level from slipping, tripping and stumbling without subsequent striking against object, initial encounter; Y93.9 Activity, unspecified; Y92.9 Unspecified place or not applicable; Y99.9 Unspecified external cause status; Z79.899 Other long term (current) drug therapy; F17.210 Nicotine dependence, cigarettes, uncomplicated; Z71.6 Tobacco abuse counseling
CPT/HCPCS: 73100; 99282; 99283

== ENCOUNTER → 2023-03-13 08:58 | Outpatient (BNVA) | payer OTHER, SELFPAY | PROVIDERS: Visit Provider Surgery | DX: Z13.89 Encounter for screening for other disorder (principal) ==

== ENCOUNTER 2023-04-06 08:45 | Day surgery (SDC) | payer OTHER, SELFPAY ==
[2023-04-04 14:16] VITALS: BMI 24.8
--- NOTE | 2023-04-05 09:02 | HO.ANESPROP2 ---
Documented by User: Piper Bhatt NP 04/05/23 09:03 HPI - Anesthesia Eval Consult details Narrative: 47yo M for Cholecystectomy Laparoscopic, poss open PMFSH Active Problems Active Problems: All Active Problems (Updated 10/23/22 @ 00:01 by Abdiel Gaffney) Biliary colic (Acute) Mild intermittent asthma (Acute) KAMILA (generalized anxiety disorder) (Acute) Mild recurrent major depression (Acute) Varicocele (Acute) Family history of diabetes mellitus (Acute) Past Medical History Medical History Family history of diabetes mellitus KAMILA (generalized anxiety disorder) Mild intermittent asthma Mild recurrent major depression Moderate persistent asthma Varicocele Family History Family History Mother Diabetes Father Stroke Surgical History Surgical History History of appendectomy History of umbilical hernia repair History of varicocele Social History Social History Housing: Apartment Alcohol intake: former Patient Tobacco Use Status: Current everyday Tobacco user Tobacco use type: Cigarette Cigarette Packs Per Day: 2 Cigarettes Per Day: 40 e-Cigarette/Vaping Use: Never Used Second Hand Smoke Exposure: No Substance Use Type: Marijuana Are you DNR?: No Advance Directives: No Advance Directives Information Provided: Yes Nutrition Risks: No Nutritional Risk service: No Current occupational status: employed Current occupational exposures/hazards: No Cognitive needs: No Hearing needs: No Vision needs: Yes Meds Allergies Allergy/AdvReac Type Severity Reaction Status Date / Time No Known Allergies Allergy Verified 04/06/23 09:50 Exam Exam Date and Time: April 05, 2023 09 Height,Weight and Vital Signs: Height 5 ft 11 in Weight 80.739 kg Pertinent Lab Results Pertinent Lab Results: Laboratory Tests 08/19/22 08/19/22 13:30 13:31 WBC 9.1 Hgb 14.7 Hct 43.6 Plt Count 257 Sodium 142 Potassium 4.3 Chloride 105 Carbon Dioxide 23 BUN 13 Creatinine 0.81 Assessment and Plan Assessment Anesthesia Assessment: Chart Reviewed Documented by User: Elena Terrazas MD 04/06/23 10:50 PMFSH Past Medical History Medical History Family history of diabetes mellitus KAMILA (generalized anxiety disorder) Mild intermittent asthma Mild recurrent major depression Moderate persistent asthma Varicocele Family History Family History Mother Diabetes Father Stroke Surgical History Surgical History History of appendectomy History of umbilical hernia repair History of varicocele History of Problems with Anesthesia: No Social History Social History Housing: Apartment Alcohol intake: former Patient Tobacco Use Status: Current everyday Tobacco user Tobacco use type: Cigarette Cigarette Packs Per Day: 2 Cigarettes Per Day: 40 e-Cigarette/Vaping Use: Never Used Second Hand Smoke Exposure: No Substance Use Type: Marijuana Are you DNR?: No Advance Directives: No Advance Directives Information Provided: Yes Nutrition Risks: No Nutritional Risk service: No Current occupational status: employed Current occupational exposures/hazards: No Cognitive needs: No Hearing needs: No Vision needs: Yes Meds Allergies Allergy/AdvReac Type Severity Reaction Status Date / Time No Known Allergies Allergy Verified 04/06/23 09:50 Exam Airway Mallampati Class: II TM Dist: >3cm Neck ROM: Full Loose/Missing/Broken Teeth: No Heart: RRR Lungs: CTA Assessment and Plan Assessment Anesthesia Assessment: Anesthesia Plan Discussed Final Anesthetic Review History of Problems with Anesthesia: No NPO: Yes ASA Class: II Final Preanesthetic Review: Meds/Allgs Chart Reviewed, Consent Obtained/Reviewed and Anes Risks/Benef Reviewed Patient Risk: Low Procedure Risk: Intermediate Anesthetic Plan Anesthetic Plan: GA Disposition: Standard PACU
--- NOTE | 2023-04-05 14:26 | MHC.SHP ---
Pre-Procedural Eval Section A Date of Service: 04/05/23 The patient is an INPATIENT: No Changes since office visit: No Cold of Flu in the past 2 weeks, No New Medical Problems, No Changes in Medication and No Patient answered all questions The History & Physical has been completed within 30 days and I have reviewed it.: Yes Section B Chief Complaint: Calculus of bile duct without cholangitis or juanita Allergies: Allergies Allergy/AdvReac Type Severity Reaction Status Date / Time No Known Allergies Allergy Verified 03/13/23 09:05 Plan I have reviewed the history and physical and performed a pertinent physical examination on my patient. No changes have occurred unless specified. Time Spent With Patient Time: Total time managing care of this patient today ____ minutes.
[2023-04-06 10:39] VITALS: BP 127/71; PULSE 73; RESP 18; TEMP 36.3; O2SAT 98
--- NOTE | 2023-04-06 13:57 | W.PM.OPN ---
Operative Note Operative Note Date of Service: 04/06/23 Narrative: Preoperative diagnosis: [] Recurrent biliary colic Postop diagnosis: [] Same Procedure [] laparoscopic cholecystectomy Surgeon: [] Michael Insulation Extruder Operator: [] shahrzad Crawford Type of Anesthesia: [] General Indication for surgery: [] Intraoperative findings demonstrated gallbladder with omental adhesions to it. A gallbladder with gallstones. Findings: [] Patient brought to the operating room, placed on the operative table in supine position, after adequate level of general anesthesia was induced, the patient has been which is very thin and scaphoid was prepped and draped in usual sterile fashion. Using a supraumbilical curvilinear incision, Ang technique was used to insufflate the abdominal cavity to 15 mm of CO2. Upper midline and right subcostal ports were placed under direct laparoscopic view, and the patient was placed in reverse Trendelenburg position, and tilted to the left. Gallbladder was grasped using laparoscopic graspers, and retracted superiorly and laterally. Soft omental adhesions were swept off the gallbladder, where its hilum was approached. Common bile duct was visualized and preserved throughout the procedure. Cystic artery and cystic duct were each identified, circumferentially skeletonized, each traced directly into the gallbladder, and critical view obtained. Each was clipped proximally x2, distally x1, and transected. During cauterization from the gallbladder fossa, a small posterior ascending artery was similarly clipped as into the gallbladder and transected. Gallbladder was then completely cauterized from the gallbladder fossa using Bovie. Specimen was placed in an Endo-Catch bag, a retrieved through the umbilical port. Abdominal cavity was copiously irrigated and secured for hemostasis. All ports were removed under direct laparoscopic view. Wounds were closed in the following manner; umbilical wound is fascia reapproximated using interrupted 0 Vicryl sutures. Skin wounds were closed using subcuticular 4-0 Vicryl sutures followed by Steri-Strips and sterile dressings. Each wound was infiltrated 0.5% Marcaine at completion. Sponge, needle, and instrument counts were reported to be correct. Patient tolerated the procedure well and emerged anesthesia stable condition. EBL minimal
[2023-04-06 14:00] VITALS: BP 115/67; PULSE 73; RESP 16; TEMP 36.4; O2SAT 99
[2023-04-06 14:05] VITALS: BP 106/67; PULSE 69; RESP 16; O2SAT 96
[2023-04-06 14:10] VITALS: BP 104/72; PULSE 74; RESP 16; O2SAT 97
[2023-04-06 14:15] VITALS: BP 118/77; PULSE 73; RESP 16; O2SAT 96
[2023-04-06 14:30] VITALS: BP 112/55; PULSE 71; RESP 16; TEMP 425.5; TEMP 797.9; O2SAT 96
--- NOTE | 2023-04-06 17:55 | PM.EVENT ---
Event Note Date of Service: 04/06/23 Event Note: Patient called after hours because the hydrocodone/APAP is not in stock at his pharmacy. Prescription change to oxycodone, 5 mg/[id number] Time Spent With Patient Time: Total time managing care of this patient today ____ minutes.
== END 2023-04-06 15:05 | disposition home or self-care (01) ==
PROVIDERS: Visit Provider Surgery
PROC: 0FT44ZZ Resection of Gallbladder, Percutaneous Endoscopic Approach (ICD-10-PCS; CPT 47562; principal; 2023-04-06 10:40)
DX: K80.10 Calculus of gallbladder with chronic cholecystitis without obstruction (principal)
CPT/HCPCS: 47562; 88304; J0690; J1100; J1170; J2250; J2405; J2795; J3010

== ENCOUNTER → 2023-04-16 10:24 | Outpatient (BNVA) | payer OTHER, SELFPAY | PROVIDERS: Visit Provider Surgery ==